=== PATIENT | male | born 1980 | race African-American/Black ===

== ENCOUNTER 2021-04-29 20:54 | Emergency (ER) | payer MEDICAID, MEDICARE ==
[~2021-04-29] VITALS: Ht 172.7 cm; Wt 70.0 kg
[2021-04-30 02:47] VITALS: BP 134/74
== END 2021-04-30 02:49 | disposition home or self-care (01) ==
LOC: ER 20:54
DX: M25.561 Pain in right knee (principal); M54.59 Other low back pain
CPT/HCPCS: 72100; 73562; 99284